=== PATIENT | female | born 1990 | race Caucasian/White ===

== ENCOUNTER → 2016-08-16 | Outpatient (CLI) | payer MEDICAID | LOC: RAD 14:37 | PROVIDERS: ATTEND Physician Assistant | DX: M54.5 Low back pain (principal) | CPT/HCPCS: 72110 ==

== ENCOUNTER 2016-08-28 10:33 | Day surgery (SDC) | payer MEDICAID ==
[~2016-08-28 10:33] MED LIST: PROPOFOL INJ 200 MG/20 ML VIAL IV ONE
[2016-08-28 13:03] VITALS: BP 117/69
--- NOTE | 2016-08-28 14:41 | Operative Report ---
Operative Report DATE OF SURGERY: 08/28/16 Operative Report: The risks benefits and alternatives of the procedure explained to the patient in detail and informed consent is obtained that GIF Olympus video scope was inserted into the patient's mouth and hypopharynx the esophagus is identified intubated and insufflated the scope was then advanced through the esophagus stomach and duodenum retroflexion maneuver is done the esophagus stomach and first and second portions of the duodenum examined PREOPERATIVE DIAGNOSIS: Nausea vomiting, gastric distention, question possible gastroparesis POSTOPERATIVE DIAGNOSIS: Hiatal hernia. Gastric polyp noted on the gastric side of the EG junction, status post biopsy. Gastritis status post biopsy. Esophageal ulcer OPERATION: EGD with biopsy SURGEON: FELIPE SLAUGHTER ANESTHESIA: LMAC TISSUE REMOVED OR ALTERED: Gastric nodule biopsy obtained. Biopsies obtained in the antrum to rule out for Helicobacter pylori COMPLICATIONS: None. ESTIMATED BLOOD LOSS: none. INTRAOPERATIVE FINDINGS: As described above. First and second portions of the duodenum are normal. PROCEDURE: Patient tolerated the procedure well. No immediate postprocedure complications are noted. Patient is discharged in good condition. Discharge date 08/28/2016. Discharge diet: Regular. Discharge activity: Regular. 2-3 week follow-up to discuss findings. We'll await on biopsies. Patient is instructed to call the office or proceed to the emergency room should there be any further problems or questions.
== END 2016-08-28 13:05 | disposition home or self-care (01) ==
LOC: END 10:33
PROVIDERS: ATTEND Internal Medicine Gastroenterology
PROC: 0DB68ZX Excision of Stomach, Via Natural or Artificial Opening Endoscopic, Diagnostic (ICD-10-PCS; principal; 2016-08-28 13:00)
DX: K29.50 Unspecified chronic gastritis without bleeding (principal); K31.7 Polyp of stomach and duodenum; K44.9 Diaphragmatic hernia without obstruction or gangrene; K22.10 Ulcer of esophagus without bleeding; E03.9 Hypothyroidism, unspecified; K31.84 Gastroparesis; K21.9 Gastro-esophageal reflux disease without esophagitis; E66.01 Morbid (severe) obesity due to excess calories; Z79.899 Other long term (current) drug therapy; Z68.41 Body mass index [BMI] 40.0-44.9, adult; Z88.5 Allergy status to narcotic agent; Z88.8 Allergy status to other drugs, medicaments and biological substances
CPT/HCPCS: 43239; 88342 ×2; 88305 ×2; J2704; 740

== ENCOUNTER → 2016-10-06 | Outpatient (CLI) | payer MEDICAID | LOC: RAD 10:30 | PROVIDERS: ATTEND Physician Assistant | DX: Z86.69 Personal history of other diseases of the nervous system and sense organs (principal) | CPT/HCPCS: 82565; 70553; A9577 ==

== ENCOUNTER 2016-10-07 19:46 | Emergency (ER) | payer MEDICAID ==
--- NOTE | 2016-10-07 19:58 | ER Document Report ---
ED Medical Screen (RME) - General Stated Complaint: PSYCH EVAL Time seen by provider: 19:52 Mode of Arrival: Ambulatory Information source: Patient Notes: 26-year-old female complaining of depression, hopeless, and anxiety without suicidal or homicidal ideation (prior hx of this though). sHe feels like she is hit rock bottom and his been in her room all day crying, seeking more help. Can't think clearly with rash and impulsive decisions for several years. PCP is Chelle Wood [facility] [place] primary care. She takes Lexapro 10mg at night. Hx. of Chiari malformation. Her Aunt dropped her off in the emergency department. I have greeted and performed a rapid initial assessment of this patient. A comprehensive ED assessment, evaluation of the patient, analysis of test results , and completion of the medical decision making process will be conducted by additional ED providers. TRAVEL OUTSIDE OF THE [place] IN LAST 30 DAYS: No - Related Data Allergies/Adverse Reactions: cefazolin [From Ancef] Allergy (Mild, Verified 10/07/16 19:53) Generalized rash cephalexin [From Keflex] Allergy (Mild, Verified 10/07/16 19:53) Generalized rash ciprofloxacin [From Cipro] Allergy (Mild, Verified 10/07/16 19:53) Generalized rash diphenhydramine [From Benadryl] Allergy (Mild, Verified 10/07/16 19:53) Generalized rash doxycycline Allergy (Mild, Verified 10/07/16 19:53) Generalized rash latex Allergy (Mild, Verified 10/07/16 19:53) Generalized rash morphine Allergy (Mild, Verified 10/07/16 19:53) Generalized rash oxycodone Allergy (Mild, Verified 10/07/16 19:53) Generalized rash adhesive tape Allergy (Verified 10/07/16 19:53) chloraprep Allergy (Uncoded 10/07/16 19:53) Redness, blisters Past Medical History - Past Medical History Cardiac Medical History: Denies: Hx Coronary Artery Disease, Hx Heart Attack, Hx Hypertension Pulmonary Medical History: Denies: Hx Asthma, Hx Bronchitis, Hx COPD, Hx Pneumonia Neurological Medical History: Denies: Hx Cerebrovascular Accident, Hx Seizures Musculoskeltal Medical History: Denies Hx Arthritis Past Surgical History: Reports: Hx Abdominal Surgery - FEEDING TUBE REMOVED, PYLORAPLASTY, Hx Section, Hx Cholecystectomy, Hx Tonsillectomy - Immunizations Hx Diphtheria, Pertussis, Tetanus Vaccination: No
[2016-10-07 20:38] LABS: ABSOLUTE BASOPHILS # (AUTO) 0.1 10^3/uL (0.0-0.2); ABSOLUTE EOSINOPHILS # (AUTO) 0.1 10^3/uL (0.0-0.6); ABSOLUTE LYMPHOCYTES (AUTO) 3.1 10^3/uL (0.5-4.7); ABSOLUTE MONOCYTES (AUTO) 0.8 10^3/uL (0.1-1.4); ABSOLUTE NEUT (AUTO) 8.5 10^3/uL (1.7-8.2); BASOPHILS % (AUTO) 0.5 % (0-2); EOSINOPHILS % (AUTO) 0.5 % (0-6); HEMATOCRIT 42.3 % (36.0-47.0); HEMOGLOBIN 13.9 g/dL (12.0-15.5); HGB HCT DIFFERENCE -0.6; LYMPHOCYTES % (AUTO) 24.6 % (13-45); MEAN CORPUSCULAR HEMOGLOBIN 28.5 pg (27.0-33.4); MEAN CORPUSCULAR HGB CONC 32.8 g/dL (32.0-36.0); MEAN CORPUSCULAR VOLUME 87 fl (80-97); MONOCYTES % (AUTO) 6.3 % (3-13); RED BLOOD COUNT 4.86 10^6/uL (3.72-5.28); RED CELL DISTRIBUTION WIDTH 14.9 % (11.5-14.0); SEGMENTED NEUTROPHILS % (AUTO) 68.1 % (42-78); WHITE BLOOD COUNT 12.5 10^3/uL (4.0-10.5)
[2016-10-07] MEDS ORDERED: LORAZEPAM 1 MG TABLET PO ONE (20:56)
--- NOTE | 2016-10-07 20:57 | ER Document Report ---
ED Psych Disorder / Suicide - General Chief Complaint: Psych Problem Stated Complaint: PSYCH EVAL Time seen by provider: 20:57 Mode of Arrival: Ambulatory Information source: Patient TRAVEL OUTSIDE OF THE [place] IN LAST 30 DAYS: No - HPI Patient complains to provider of: Other - Depression Onset was: Cannot confirm Quality of pain: No pain Suicide Risk Factors: Depressed, Lack of social support Normal mood: No Associated symptoms: Depressed, Flat affect Similar symptoms previously: Yes Recently seen / treated by doctor: No Notes: Patient is a 26-year-old female with a history of depression, currently taking Lexapro, who presents to the emergency room complaining of worsening depression , states she occasionally has suicidal thoughts but has no active thoughts at the present time, no history of any suicide attempts in the past, states she's been having difficulty sleeping for the past few weeks, she's been crying a lot , and she is making impulsive decisions, such as buying things impulsively, and having impulsive relationships, recently she had intercourse with her cousin's boyfriend which is created some issues and worsened her state of depression, patient states she is does not currently feel safe to go home - Related Data Allergies/Adverse Reactions: cefazolin [From Ancef] Allergy (Mild, Verified 10/07/16 19:53) Generalized rash cephalexin [From Keflex] Allergy (Mild, Verified 10/07/16 19:53) Generalized rash ciprofloxacin [From Cipro] Allergy (Mild, Verified 10/07/16 19:53) Generalized rash diphenhydramine [From Benadryl] Allergy (Mild, Verified 10/07/16 19:53) Generalized rash doxycycline Allergy (Mild, Verified 10/07/16 19:53) Generalized rash latex Allergy (Mild, Verified 10/07/16 19:53) Generalized rash morphine Allergy (Mild, Verified 10/07/16 19:53) Generalized rash oxycodone Allergy (Mild, Verified 10/07/16 19:53) Generalized rash adhesive tape Allergy (Verified 10/07/16 19:53) chloraprep Allergy (Uncoded 10/07/16 19:53) Redness, blisters Past Medical History - General Information source: Patient - Social History Smoking Status: Current Every Day Smoker Family History: Reviewed & Not Pertinent Patient has suicidal ideation: No Patient has homicidal ideation: No - Past Medical History Cardiac Medical History: Denies: Hx Coronary Artery Disease, Hx Heart Attack, Hx Hypertension Pulmonary Medical History: Denies: Hx Asthma, Hx Bronchitis, Hx COPD, Hx Pneumonia Neurological Medical History: Denies: Hx Cerebrovascular Accident, Hx Seizures Renal/ Medical History: Denies: Hx Peritoneal Dialysis Musculoskeltal Medical History: Denies Hx Arthritis Past Surgical History: Reports: Hx Abdominal Surgery - FEEDING TUBE REMOVED, PYLORAPLASTY, Hx Section, Hx Cholecystectomy, Hx Tonsillectomy - Immunizations Hx Diphtheria, Pertussis, Tetanus Vaccination: No Review of Systems - Review of Systems Constitutional: No symptoms reported EENT: No symptoms reported Cardiovascular: No symptoms reported Respiratory: No symptoms reported Gastrointestinal: No symptoms reported Genitourinary: No symptoms reported Female Genitourinary: No symptoms reported Musculoskeletal: No symptoms reported Skin: No symptoms reported Hematologic/Lymphatic: No symptoms reported Neurological/Psychological: See HPI -: Yes All other systems reviewed and negative Physical Exam - Vital signs Vitals: Temp Pulse Resp BP Pulse Ox 98.6 F 98 18 133/87 H 99 10/07/16 19:50 10/07/16 19:50 10/07/16 19:50 10/07/16 19:50 10/07/16 19:50 Interpretation: Normal - General General appearance: Appears well, Alert - HEENT Head: Normocephalic, Atraumatic Eyes: Normal Pupils: PERRL - Respiratory Respiratory status: No respiratory distress Chest status: Nontender Breath sounds: Normal Chest palpation: Normal - Cardiovascular Rhythm: Regular Heart sounds: Normal auscultation Murmur: No - Abdominal Inspection: Normal Distension: No distension Bowel sounds: Normal Tenderness: Nontender Organomegaly: No organomegaly - Back Back: Normal, Nontender - Extremities General upper extremity: Normal inspection, Nontender, Normal color, Normal ROM , Normal temperature General lower extremity: Normal inspection, Nontender, Normal color, Normal ROM , Normal temperature, Normal weight bearing. No: Jorge Luis's sign - Neurological Neuro grossly intact: Yes Cognition: Normal Orientation: AAOx4 Dian Coma Scale Eye Opening: Spontaneous [place] Coma Scale Verbal: Oriented Dian Coma Scale Motor: Obeys Commands [place] Coma Scale Total: 15 Speech: Normal Motor strength normal: LUE, RUE, LLE, RLE Sensory: Normal - Psychological Associated symptoms: Depressed, Flat affect - Skin Skin Temperature: Warm Skin Moisture: Dry Skin Color: Normal Location of irregularity: Other - Patient does have large ecchymotic lesions to the left neck and right breast resembling hickies Course - Re-evaluation Re-evalutation: 10/08/16 03:42 Patient reports worsening depression, feeling unsafe at home, making impulsive decisions, she has no active suicidal or homicidal ideation, she is not currently in any type of mental health treatment program, she is agreeable to staying in the emergency room as a voluntary patient for further evaluation and treatment by the mental health team in the morning, she is medically stable for transfer or discharge - Vital Signs Vital signs: Temp Pulse Resp BP Pulse Ox 98.6 F 98 18 133/87 H 99 10/07/16 19:50 10/07/16 19:50 10/07/16 20:45 10/07/16 19:50 10/07/16 19:50 - Laboratory Result Diagrams: 10/07/16 20:14 10/07/16 20:14 Laboratory results interpreted by me: 10/07/16 10/07/16 10/07/16 20:14 20:14 20:43 WBC 12.5 H RDW 14.9 H Absolute Neutrophils 8.5 H Sodium 145.1 H Chloride 112 H Carbon Dioxide 21 L Urine Protein 30 H Urine Ketones 80 H Urine Blood LARGE H Ur Leukocyte Esterase SMALL H Salicylates < 1.0 L Acetaminophen < 10 L - EKG Interpretation by Pa EKG shows normal: Sinus rhythm Rate: Normal Rhythm: NSR Discharge - Discharge Clinical Impression: Depression Qualifiers: Depression Type: unspecified Qualified Code(s): F32.9 - Major depressive disorder, single episode, unspecified Condition: Stable Disposition: PSYCH HOSP/UNIT
[2016-10-07 21:06] LABS: ALANINE AMINOTRANSFERASE 36 U/L (9-52); ALBUMIN 4.4 g/dL (3.5-5.0); ALKALINE PHOSPHATASE 120 U/L (38-126); ANION GAP 12 (5-19); ASPARTATE AMINO TRANSFERASE 22 U/L (14-36); BILIRUBIN,TOTAL 0.7 mg/dL (0.2-1.3); BLOOD UREA NITROGEN 10 mg/dL (7-20); CARBON DIOXIDE 21 mmol/L (22-30); CHLORIDE 112 mmol/L (98-107); CREATININE RESULT 0.58 mg/dL (0.52-1.25); GLUCOSE 92 mg/dL (75-110); POTASSIUM 4.2 mmol/L (3.6-5.0); SODIUM 145.1 mmol/L (137-145); TOTAL PROTEIN 7.3 g/dL (6.3-8.2)
[2016-10-07 21:07] LABS: ALCOHOL < 10 mg/dL (NONE DETECTED)
[2016-10-07 21:28] LABS: APPEARANCE,URINE SLIGHTLY-CLOUDY; BILIRUBIN,URINE NEGATIVE (NEGATIVE); GLUCOSE, URINE NEGATIVE (NEGATIVE); KETONES,URINE 80 mg/dL (NEGATIVE); LEUKOCYTE ESTERASE,URINE SMALL (NEGATIVE); NITRITE,URINE NEGATIVE (NEGATIVE); PROTEIN,URINE 30 mg/dL (NEGATIVE); URINE SPECIFIC GRAVITY 1.031; UROBILINOGEN,URINE NEGATIVE mg/dL (<2.0)
[2016-10-07 21:38] LABS: URINE BARBITURATES SCREEN UNCONFIRMED POSITIVE; URINE METHADONE SCREEN NEGATIVE; URINE OPIATES LOW NEGATIVE; URINE PHENCYCLIDINE SCREEN NEGATIVE
--- NOTE | 2016-10-08 09:45 | EKG REPORT ---
SEVERITY:- NORMAL ECG - SINUS RHYTHM : Confirmed by: Andrzej Gonsalves MD 08-Oct-2016 09:44:38
--- NOTE | 2016-10-08 09:54 | ER Document Report ---
Doctor's Note Notes: 10/08/16 09:52 Rounds: Chart reviewed and patient interviewed. Patient is being evaluated for worsening depression. Denies feeling suicidal, however. Vital signs all been normal with the exception of one aberrant and obviously mistaken blood pressure 196/58. Other blood pressures have all been normal. Labs had a white count of 12,500 but no explanation. Patient has no symptoms of any infections. Her urinalysis did have large ketones and small leukocyte esterase with 15 white cells and 182 red cells. Patient just started her menstrual cycle yesterday. I think this urine specimen that is contamination in the collection process. Patient appears to be medically stable for transfer or discharge. Mental health has assessed the patient feels she can be discharged to [facility]
[2016-10-08 10:28] VITALS: BP 133/74
--- NOTE | 2016-10-08 12:21 | PSYCHOLOGICAL NOTE ---
Psych Note - Psych Note Psych Note: Please see paper chart for consultation report and disposition.
== END 2016-10-08 10:32 | disposition home or self-care (01) ==
LOC: ER 19:46
DX: F32.9 Major depressive disorder, single episode, unspecified (principal); F41.9 Anxiety disorder, unspecified; Z88.3 Allergy status to other anti-infective agents; Z88.6 Allergy status to analgesic agent; Z91.040 Latex allergy status; Z90.49 Acquired absence of other specified parts of digestive tract
CPT/HCPCS: 36415; 80053; 80307; 81001; 84703; 85025; 93005; 93010; 99285

== ENCOUNTER 2016-10-21 18:45 | Emergency (ER) | payer MEDICAID, OTHER ==
[2016-10-21] MEDS ORDERED: ONDANSETRON 4 MG TAB.RAPDIS PO ONE (19:05)
--- NOTE | 2016-10-21 19:05 | ER Document Report ---
ED Medical Screen (RME) - General Stated Complaint: NAUSEA Notes: Patient is a 26-year-old female who presents emergency Department complaining of nausea and vomiting, headache, syncope. Patient states that she was in the bathroom when she got up to go back to bed and she passed out. she's been throwing up for 1 week. Has a history of gastroparesis. Denies any hematemesis or hematochezia. Admits to neck pain which she had prior to syncope I have greeted and performed a rapid initial assessment of this patient. A comprehensive ED assessment and evaluation of the patient, analysis of test results and completion of the medical decision making process will be conducted by additional ED providers. TRAVEL OUTSIDE OF THE [place] IN LAST 30 DAYS: No - Related Data Allergies/Adverse Reactions: cefazolin [From Ancef] Allergy (Mild, Verified 10/07/16 19:53) Generalized rash cephalexin [From Keflex] Allergy (Mild, Verified 10/07/16 19:53) Generalized rash ciprofloxacin [From Cipro] Allergy (Mild, Verified 10/07/16 19:53) Generalized rash diphenhydramine [From Benadryl] Allergy (Mild, Verified 10/07/16 19:53) Generalized rash doxycycline Allergy (Mild, Verified 10/07/16 19:53) Generalized rash latex Allergy (Mild, Verified 10/07/16 19:53) Generalized rash morphine Allergy (Mild, Verified 10/07/16 19:53) Generalized rash oxycodone Allergy (Mild, Verified 10/07/16 19:53) Generalized rash adhesive tape Allergy (Verified 10/07/16 19:53) chloraprep Allergy (Uncoded 10/07/16 19:53) Redness, blisters Past Medical History - Past Medical History Cardiac Medical History: Denies: Hx Coronary Artery Disease, Hx Heart Attack, Hx Hypertension Pulmonary Medical History: Denies: Hx Asthma, Hx Bronchitis, Hx COPD, Hx Pneumonia Neurological Medical History: Denies: Hx Cerebrovascular Accident, Hx Seizures Renal/ Medical History: Denies: Hx Peritoneal Dialysis Musculoskeltal Medical History: Denies Hx Arthritis Past Surgical History: Reports: Hx Abdominal Surgery - FEEDING TUBE REMOVED, PYLORAPLASTY, Hx Section, Hx Cholecystectomy, Hx Tonsillectomy - Immunizations Hx Diphtheria, Pertussis, Tetanus Vaccination: No Physical Exam - Vital signs Vitals: Temp Pulse Resp BP Pulse Ox 97.7 F 74 16 125/61 97 10/21/16 18:56 10/21/16 18:56 10/21/16 18:56 10/21/16 18:56 10/21/16 18:56 Course - Vital Signs Vital signs: Temp Pulse Resp BP Pulse Ox 97.7 F 74 16 125/61 97 10/21/16 18:56 10/21/16 18:56 10/21/16 18:56 10/21/16 18:56 10/21/16 18:56
[2016-10-21] MEDS ORDERED: ONDANSETRON 4 MG TAB.RAPDIS ONE (19:18)
[2016-10-21] MEDS ORDERED: NORMAL SALINE 1000 ML 1,000 ML IV ONE (19:37)
--- NOTE | 2016-10-21 19:39 | ER Document Report ---
ED General - General Chief Complaint: Passed Out Prior to Arrival Stated Complaint: NAUSEA Notes: Patient is a 26-year-old female with past medical history of diabetes and gastroparesis who presents with 1 week of intermittent nausea and approximately 12 hours of nonbilious persistent vomiting. States she's had similar symptoms in the past with her gastroparesis. She's been trying Phenergan at home with minimal to no improvement. She has not seen her primary care doctor regarding today's concerns. She also notes that today she had a syncopal episode after going from a sitting to standing position. States when she went from a sitting to standing position she became lightheaded and felt herself passing out. She did not sustain any trauma during this event. She has had similar episodes in the past when she's become dehydrated. She has been able to tolerate oral intake since the episode of syncope denies any chest pain, shortness of breath, weakness, numbness or altered mental status.She did initially have a mild headache after the syncopal episode but that this has resolved. TRAVEL OUTSIDE OF THE [place] IN LAST 30 DAYS: No - Related Data Allergies/Adverse Reactions: cefazolin [From Ancef] Allergy (Mild, Verified 10/07/16 19:53) Generalized rash cephalexin [From Keflex] Allergy (Mild, Verified 10/07/16 19:53) Generalized rash ciprofloxacin [From Cipro] Allergy (Mild, Verified 10/07/16 19:53) Generalized rash diphenhydramine [From Benadryl] Allergy (Mild, Verified 10/07/16 19:53) Generalized rash doxycycline Allergy (Mild, Verified 10/07/16 19:53) Generalized rash latex Allergy (Mild, Verified 10/07/16 19:53) Generalized rash morphine Allergy (Mild, Verified 10/07/16 19:53) Generalized rash oxycodone Allergy (Mild, Verified 10/07/16 19:53) Generalized rash adhesive tape Allergy (Verified 10/07/16 19:53) chloraprep Allergy (Uncoded 10/07/16 19:53) Redness, blisters Past Medical History - General Information source: Patient - Social History Smoking Status: Former Smoker Chew tobacco use (# tins/day): No Frequency of alcohol use: Occasional Drug Abuse: None Family History: Reviewed & Not Pertinent Patient has suicidal ideation: No Patient has homicidal ideation: No - Past Medical History Cardiac Medical History: Denies: Hx Coronary Artery Disease, Hx Heart Attack, Hx Hypertension Pulmonary Medical History: Denies: Hx Asthma, Hx Bronchitis, Hx COPD, Hx Pneumonia Neurological Medical History: Denies: Hx Cerebrovascular Accident, Hx Seizures Renal/ Medical History: Denies: Hx Peritoneal Dialysis Musculoskeltal Medical History: Denies Hx Arthritis Past Surgical History: Reports: Hx Abdominal Surgery - FEEDING TUBE REMOVED, PYLORAPLASTY, Hx Section, Hx Cholecystectomy, Hx Tonsillectomy - Immunizations Hx Diphtheria, Pertussis, Tetanus Vaccination: No Review of Systems - Review of Systems Notes: Constitutional: Negative for fever. HENT: Negative for sore throat. Eyes: Negative for visual changes. Cardiovascular: Negative for chest pain. Respiratory: Negative for shortness of breath. Gastrointestinal: Negative for abdominal pain, positive for vomiting Genitourinary: Negative for dysuria. Musculoskeletal: Negative for back pain. Skin: Negative for rash. Neurological: Negative for headaches, weakness or numbness. 10 point ROS negative except as marked above and in HPI. Physical Exam - Vital signs Vitals: Temp Pulse Resp BP Pulse Ox 97.7 F 74 16 125/61 97 10/21/16 18:56 10/21/16 18:56 10/21/16 18:56 10/21/16 18:56 10/21/16 18:56 Interpretation: Normal Notes: PHYSICAL EXAMINATION: GENERAL: Well-appearing, well-nourished and in no acute distress. HEAD: Atraumatic, normocephalic. EYES: Pupils equal round and reactive to light, extraocular movements intact, sclera anicteric, conjunctiva are normal. ENT: nares patent, oropharynx clear without exudates. Moist mucous membranes. NECK: Normal range of motion, supple without lymphadenopathy LUNGS: Breath sounds clear to auscultation bilaterally and equal. No wheezes rales or rhonchi. HEART: Regular rate and rhythm without murmurs ABDOMEN: Soft, nontender, normoactive bowel sounds. No guarding, no rebound. No masses appreciated. EXTREMITIES: Normal range of motion, no pitting or edema. No cyanosis. NEUROLOGICAL: No focal neurological deficits. Moves all extremities spontaneously and on command. PSYCH: Normal mood, normal affect. SKIN: Warm, Dry, normal turgor, no rashes or lesions noted. Course - Re-evaluation Re-evalutation: 10/21/16 19:38 Presentation of syncope of unclear etiology although I suspect this is secondary to dehydration setting of intermittent episodes of vomiting over the last several days. Regarding patient's vomiting: She has no focal abdominal tenderness on examination. States she's had similar symptoms repeatedly in the past with gastroparesis episodes. She does not have a gallbladder. She denies any abdominal pain and her clinical history and does not appear to be consistent with an acute hepatitis, pancreatitis, bowel obstruction, or ileus. She continues to pass flatus and have bowel movements without difficulty. Patient normotensive, alert, without focal neurologic deficits at time of arrival. Denies syncope was during exertion. No preceding symptoms of palpitations, chest pain, or shortness of breath. Patient asymptomatic at time of arrival. EKG is without evidence of HCOM, right heart strain, ST changes to suggest ischemia, prolong QTc, delta wave, epsilon wave, or Brugada syndrome. Patient denies any family history of sudden cardiac , personal history of of structural heart disease. Patient denies any symptoms to suggest an acute PE , MN, TAD, SAH, seizure, or acute GI bleed as the etiology of their syncope today. On exam, no murmurs to suggest critical aortic stenosis as possible etiology. Based on overall clinical history, exam findings, vitals, and patient s appearance, I feel it is safe for patient to be discharged home at this time with close outpatient follow-up and strict return precautions. Patient is in agreement with this plan, has verbalized indications for return to ED, and questions have been answered. - Vital Signs Vital signs: Temp Pulse Resp BP Pulse Ox 98.2 F 79 18 118/63 98 10/21/16 22:28 10/21/16 22:28 10/21/16 22:28 10/21/16 22:28 10/21/16 22:28 - Laboratory Result Diagrams: 10/21/16 21:09 - EKG Interpretation by Me Additional EKG results interpreted by me: 10/22/16 01:19 Normal sinus rhythm. Rate 77. No ST elevation. QTC is 431 Discharge - Discharge Clinical Impression: Syncope Qualifiers: Syncope type: vasovagal syncope Qualified Code(s): R55 - Syncope and collapse Nausea and vomiting Qualifiers: Vomiting type: unspecified Vomiting Intractability: non-intractable Qualified Code(s): R11.2 - Nausea with vomiting, unspecified Condition: Good Disposition: HOME, SELF-CARE Additional Instructions: You have been seen in the Emergency Department (ED) today for nausea and vomiting. Your work up today has not shown a clear cause for your symptoms. Follow up with your doctor as soon as possible regarding today's emergent visit and your symptoms of nausea. Return to the Emergency Department (ED) if you develop abdominal pain, bloody vomiting, bloody diarrhea, if you are unable to tolerate fluids due to vomiting , or if you develop other symptoms that concern you. You were seen today after an episode of passing out. Your EKG here is normal. At this time, we do not feel that your episode of passing out was from any life- threatening cause. Please drink plenty of fluids over the next several days. Return to emergency department if you have any further episodes of syncope, headache, weakness, numbness, chest pain, or shortness of breath. Please follow up closely with your primary care physician. Prescriptions: Promethazine HCl [Phenergan 25 mg Supp.rect] 25 mg FL Q4HP PRN #[id number] supp.rect PRN Reason: Referrals: ARANZA LI MD [Primary Care Provider] - Follow up in 3-5 days
--- NOTE | 2016-10-21 20:34 | EKG REPORT ---
SEVERITY:- NORMAL ECG - SINUS RHYTHM : Confirmed by: Keturah Mathew MD 21-Oct-2016 20:33:37
[2016-10-21 21:48] LABS: ALANINE AMINOTRANSFERASE 52 U/L (9-52); ALBUMIN 3.8 g/dL (3.5-5.0); ALKALINE PHOSPHATASE 117 U/L (38-126); ANION GAP 13 (5-19); ASPARTATE AMINO TRANSFERASE 26 U/L (14-36); BILIRUBIN,TOTAL 0.6 mg/dL (0.2-1.3); BLOOD UREA NITROGEN 10 mg/dL (7-20); CALCIUM 9.3 mg/dL (8.4-10.2); CARBON DIOXIDE 25 mmol/L (22-30); CHLORIDE 106 mmol/L (98-107); CREATININE RESULT 0.58 mg/dL (0.52-1.25); GLUCOSE 80 mg/dL (75-110); LIPASE 32.3 U/L (23-300); POTASSIUM 3.9 mmol/L (3.6-5.0); SODIUM 143.7 mmol/L (137-145); TOTAL PROTEIN 6.7 g/dL (6.3-8.2)
[2016-10-21] MEDS ORDERED: ONDANSETRON ODT 4 MG TAB (6 TAB/DSPK) PO PRN (22:19)
[2016-10-21 22:31] VITALS: BP 118/63
== END 2016-10-21 22:28 | disposition home or self-care (01) ==
LOC: ER 18:45
DX: R55 Syncope and collapse (principal); R11.2 Nausea with vomiting, unspecified; Z88.3 Allergy status to other anti-infective agents; Z90.49 Acquired absence of other specified parts of digestive tract
CPT/HCPCS: 93005; 99284; 96360; 36415; 83690; 84703; 80053; 93010; S0119; J7030

== ENCOUNTER 2016-12-03 14:11 | Emergency (ER) | payer MEDICAID ==
--- NOTE | 2016-12-03 15:41 | ER Document Report ---
ED Medical Screen (RME) - General Chief Complaint: Neck Problem Stated Complaint: NECK PAIN Mode of Arrival: Ambulatory Information source: Patient TRAVEL OUTSIDE OF THE [place] IN LAST 30 DAYS: No - HPI Onset: This morning Onset/Duration: Sudden Quality of pain: Dull Severity: Moderate Associated Symptoms: Nausea, Vomiting. denies: Fever, Headache Exacerbated by: Denies Relieved by: Denies Similar symptoms previously: Yes Recently seen / treated by doctor: No - HAS APPT. TOMORROW - Related Data Allergies/Adverse Reactions: cefazolin [From Ancef] Allergy (Mild, Verified 12/03/16 15:33) Generalized rash cephalexin [From Keflex] Allergy (Mild, Verified 12/03/16 15:33) Generalized rash ciprofloxacin [From Cipro] Allergy (Mild, Verified 12/03/16 15:33) Generalized rash diphenhydramine [From Benadryl] Allergy (Mild, Verified 12/03/16 15:33) Generalized rash doxycycline Allergy (Mild, Verified 12/03/16 15:33) Generalized rash latex Allergy (Mild, Verified 12/03/16 15:33) Generalized rash morphine Allergy (Mild, Verified 12/03/16 15:33) Generalized rash oxycodone Allergy (Mild, Verified 12/03/16 15:33) Generalized rash adhesive tape Allergy (Verified 12/03/16 15:33) chloraprep Allergy (Uncoded 12/03/16 15:33) Redness, blisters Past Medical History - General Information source: Patient - Social History Lives with: Friend - Past Medical History Cardiac Medical History: Denies: Hx Coronary Artery Disease, Hx Heart Attack, Hx Hypertension Pulmonary Medical History: Denies: Hx Asthma, Hx Bronchitis, Hx COPD, Hx Pneumonia Neurological Medical History: Reports: Other - CHIARI MALFORMATION. Denies: Hx Cerebrovascular Accident, Hx Seizures Renal/ Medical History: Denies: Hx Peritoneal Dialysis Musculoskeltal Medical History: Denies Hx Arthritis Past Surgical History: Reports: Hx Abdominal Surgery - FEEDING TUBE REMOVED, PYLORAPLASTY, Hx Section, Hx Cholecystectomy, Hx Neurologic Surgery - DECOMPRESSION, Hx Tonsillectomy - Immunizations Hx Diphtheria, Pertussis, Tetanus Vaccination: No Review of Systems - Review of Systems Constitutional: No symptoms reported. denies: Chills, Fever EENT: No symptoms reported Cardiovascular: Lightheaded Respiratory: No symptoms reported Physical Exam - Vital signs Vitals: Temp Pulse Resp BP Pulse Ox 100.0 F 82 18 126/98 H 98 12/03/16 14:25 12/03/16 14:25 12/03/16 14:25 12/03/16 14:25 12/03/16 14:25 Interpretation: Hypertensive. No: Tachycardic, Tachypneic, Febrile - General General appearance: Appears well, Alert In distress: None - HEENT Head: Normocephalic Eyes: Normal Conjunctiva: Normal Mouth/Lips: Normal Mucous membranes: Dry - MILDLY Course - Vital Signs Vital signs: Temp Pulse Resp BP Pulse Ox 100.0 F 82 18 126/98 H 98 12/03/16 14:25 12/03/16 14:25 12/03/16 14:25 12/03/16 14:25 12/03/16 14:25
[2016-12-03] MEDS ORDERED: NORMAL SALINE 1000 ML 1,000 ML IV ONE (15:48)
[2016-12-03 16:19] LABS: APPEARANCE,URINE SLIGHTLY-CLOUDY; BILIRUBIN,URINE NEGATIVE (NEGATIVE); GLUCOSE, URINE NEGATIVE (NEGATIVE); KETONES,URINE NEGATIVE (NEGATIVE); LEUKOCYTE ESTERASE,URINE NEGATIVE (NEGATIVE); NITRITE,URINE NEGATIVE (NEGATIVE); PROTEIN,URINE NEGATIVE (NEGATIVE); URINE SPECIFIC GRAVITY 1.031; UROBILINOGEN,URINE NEGATIVE mg/dL (<2.0)
[2016-12-03] MEDS ORDERED: CYCLOBENZAPRINE HCL 10 MG TABLET PO ONE (16:26)
[2016-12-03] MEDS ORDERED: ONDANSETRON 4 MG TAB.RAPDIS PO ONE (16:31)
[2016-12-03] MEDS ORDERED: ACETAMINOPHEN 325 MG TABLET PO ONE (16:31)
[2016-12-03 17:25] LABS: ABSOLUTE EOSINOPHILS # (AUTO) 0.1 10^3/uL (0.0-0.6); ABSOLUTE LYMPHOCYTES (AUTO) 0.6 10^3/uL (0.5-4.7); ABSOLUTE MONOCYTES (AUTO) 0.5 10^3/uL (0.1-1.4); ABSOLUTE NEUT (AUTO) 9.7 10^3/uL (1.7-8.2); BASOPHILS % (AUTO) 0.3 % (0-2); EOSINOPHILS % (AUTO) 0.5 % (0-6); HEMATOCRIT 45.2 % (36.0-47.0); HEMOGLOBIN 14.6 g/dL (12.0-15.5); HGB HCT DIFFERENCE -1.4; LYMPHOCYTES % (AUTO) 5.8 % (13-45); MEAN CORPUSCULAR HEMOGLOBIN 28.2 pg (27.0-33.4); MEAN CORPUSCULAR HGB CONC 32.2 g/dL (32.0-36.0); MEAN CORPUSCULAR VOLUME 88 fl (80-97); MONOCYTES % (AUTO) 4.6 % (3-13); RED BLOOD COUNT 5.17 10^6/uL (3.72-5.28); RED CELL DISTRIBUTION WIDTH 14.9 % (11.5-14.0); SEGMENTED NEUTROPHILS % (AUTO) 88.8 % (42-78); WHITE BLOOD COUNT 10.9 10^3/uL (4.0-10.5)
[2016-12-03 17:40] LABS: ALANINE AMINOTRANSFERASE 28 U/L (9-52); ALBUMIN 4.2 g/dL (3.5-5.0); ALKALINE PHOSPHATASE 135 U/L (38-126); ANION GAP 15 (5-19); ASPARTATE AMINO TRANSFERASE 18 U/L (14-36); BILIRUBIN,DIRECT 0.4 mg/dL (0.0-0.4); BILIRUBIN,TOTAL 0.9 mg/dL (0.2-1.3); BLOOD UREA NITROGEN 17 mg/dL (7-20); CALCIUM 9.3 mg/dL (8.4-10.2); CARBON DIOXIDE 24 mmol/L (22-30); CHLORIDE 109 mmol/L (98-107); CREATININE RESULT 0.69 mg/dL (0.52-1.25); GLUCOSE 88 mg/dL (75-110); POTASSIUM 4.1 mmol/L (3.6-5.0); SODIUM 148.1 mmol/L (137-145); TOTAL PROTEIN 7.8 g/dL (6.3-8.2)
[2016-12-03] MEDS ORDERED: ONDANSETRON ODT 4 MG TAB (6 TAB/DSPK) PO PRN (18:08)
--- NOTE | 2016-12-03 18:08 | ER Document Report ---
ED Neck/Back Problem - General Chief Complaint: Neck Problem Stated Complaint: NECK PAIN Mode of Arrival: Ambulatory Notes: Patient is a 26 year old female who presents to the ED complaining of worsening neck pain and headache. She states that she has daily headaches but now today her neck pain is worse. She states she has a history of a chiari malformatio that was diagnosed in 2011 and she underwent a procedure for it that same year. She states that she has not had issues with it since, does not follow with a neurologist and has had her headaches managed by her PCP. has been taking 10 mg vicodin She is due to f/u tomorrow with PCP Chelle Durbin PMH: gastroparesis, h/o chiari malformation, GERD, depression PSH: pyloroplasty SH: social tobacco and etoh use, denies drug use TRAVEL OUTSIDE OF THE [place] IN LAST 30 DAYS: No - Related Data Allergies/Adverse Reactions: cefazolin [From Ancef] Allergy (Mild, Verified 12/03/16 15:33) Generalized rash cephalexin [From Keflex] Allergy (Mild, Verified 12/03/16 15:33) Generalized rash ciprofloxacin [From Cipro] Allergy (Mild, Verified 12/03/16 15:33) Generalized rash diphenhydramine [From Benadryl] Allergy (Mild, Verified 12/03/16 15:33) Generalized rash doxycycline Allergy (Mild, Verified 12/03/16 15:33) Generalized rash latex Allergy (Mild, Verified 12/03/16 15:33) Generalized rash morphine Allergy (Mild, Verified 12/03/16 15:33) Generalized rash oxycodone Allergy (Mild, Verified 12/03/16 15:33) Generalized rash adhesive tape Allergy (Verified 12/03/16 15:33) chloraprep Allergy (Uncoded 12/03/16 15:33) Redness, blisters Home Medications: Current Home Medications Hydrocodone Bit/Acetaminophen [Hydrocodon-Acetaminophn 10-325] 1 tab PO PRN PRN 12/03/16 [History] Past Medical History - General Information source: Patient - Social History Smoking Status: Never Smoker Chew tobacco use (# tins/day): No Drug Abuse: None Lives with: Friend Family History: Reviewed & Not Pertinent Patient has suicidal ideation: No Patient has homicidal ideation: No - Past Medical History Cardiac Medical History: Denies: Hx Coronary Artery Disease, Hx Heart Attack, Hx Hypertension Pulmonary Medical History: Denies: Hx Asthma, Hx Bronchitis, Hx COPD, Hx Pneumonia Neurological Medical History: Reports: Other - CHIARI MALFORMATION. Denies: Hx Cerebrovascular Accident, Hx Seizures Renal/ Medical History: Denies: Hx Peritoneal Dialysis Musculoskeltal Medical History: Denies Hx Arthritis Past Surgical History: Reports: Hx Abdominal Surgery - FEEDING TUBE REMOVED, PYLORAPLASTY, Hx Section, Hx Cholecystectomy, Hx Neurologic Surgery - DECOMPRESSION, Hx Tonsillectomy - Immunizations Hx Diphtheria, Pertussis, Tetanus Vaccination: No Review of Systems - Review of Systems Constitutional: No symptoms reported EENT: No symptoms reported Cardiovascular: No symptoms reported Respiratory: No symptoms reported Gastrointestinal: No symptoms reported Musculoskeletal: Muscle pain Skin: No symptoms reported Hematologic/Lymphatic: No symptoms reported Neurological/Psychological: No symptoms reported Physical Exam - Vital signs Vitals: Temp Pulse Resp BP Pulse Ox 100.0 F 82 18 126/98 H 98 12/03/16 14:25 12/03/16 14:25 12/03/16 14:25 12/03/16 14:25 12/03/16 14:25 - Notes Notes: PHYSICAL EXAM GENERAL: Alert, interacts well. HEAD: Normocephalic, atraumatic. EYES: Pupils equal, round, and reactive to light. Extraocular movements intact. ENT: Oral mucosa moist, tongue midline. NECK: Full range of motion. Supple. Trachea midline. LUNGS: Clear to auscultation bilaterally, no wheezes, rales, or rhonchi. No respiratory distress. HEART: Regular rate and rhythm. No murmurs, gallops, or rubs. ABDOMEN: Soft, nondistended, nontender. No guarding, rebound, or rigidity.. Bowel sounds present in all 4 quadrants. EXTREMITIES: Moves all 4 extremities spontaneously. No edema, radial and dorsalis pedis pulses 2/4 bilaterally. No cyanosis. Has pain to palpation of paraspinous muscles and shoulders, her pain is reproducible NEUROLOGICAL: Alert and oriented x4. Normal speech. PSYCH: Normal affect, normal mood. SKIN: Warm, dry, normal turgor. No rashes or lesions noted. Course - Re-evaluation Re-evalutation: 12/03/16 20:09 Patient is a 26-year-old female is hemodynamically stable, no acute distress, elevated temp but afebrile. Patient has full range of motion, benign neuro exam. Patient medicated for her muscle pain with muscle relaxer and Tylenol, labs do not reveal any concern for infection. We'll discharge patient home with instruction to follow up with her primary care tomorrow Per [facility] protocol and guidelines, this case was discussed with supervising physician Dr. Lupis Ryan prior to discharge - Vital Signs Vital signs: Temp Pulse Resp BP Pulse Ox 98.5 F 111 H 16 131/70 H 98 12/03/16 18:36 12/03/16 18:36 12/03/16 18:36 12/03/16 18:36 12/03/16 18:36 - Laboratory Result Diagrams: 12/03/16 17:15 12/03/16 17:15 Laboratory results interpreted by me: 12/03/16 12/03/16 12/03/16 15:55 17:15 17:15 WBC 10.9 H RDW 14.9 H Seg Neutrophils % 88.8 H Lymphocytes % 5.8 L Absolute Neutrophils 9.7 H Sodium 148.1 H Chloride 109 H Alkaline Phosphatase 135 H Urine Blood SMALL H Discharge - Discharge Clinical Impression: Neck pain Condition: Good Disposition: HOME, SELF-CARE Instructions: Muscle Strain ([facility]), Muscle Relaxers ([facility]) Additional Instructions: Physical medications as prescribed Please follow-up with your primary care physician as scheduled tomorrow Prescriptions: Cyclobenzaprine HCl [Flexeril 10 mg Tablet] 10 mg PO TIDP PRN #15 tab PRN Reason: Referrals: CHELLE DURBIN PA-C [Primary Care Provider] - Follow up tomorrow
[2016-12-03 18:39] VITALS: BP 131/70
== END 2016-12-03 18:39 | disposition home or self-care (01) ==
LOC: ER 14:11
DX: M54.2 Cervicalgia (principal); R51 Headache; Z88.3 Allergy status to other anti-infective agents; Z91.040 Latex allergy status; Z88.6 Allergy status to analgesic agent; Z90.49 Acquired absence of other specified parts of digestive tract
CPT/HCPCS: 99283; 96360; 36415; 85025; 81025; 80053; 81001; J3490 ×2; S0119; J7030

== ENCOUNTER 2017-04-10 21:10 | Emergency (ER) | payer MEDICAID ==
[2017-04-11] MEDS ORDERED: KETOROLAC TROMETHAMINE INJ/PF 30 MG/1 ML SDV IV ONE (00:17)
--- NOTE | 2017-04-11 01:26 | ER Document Report ---
ED General - General Chief Complaint: Neck Pain >24hrs old Stated Complaint: HEAD PAIN Time Seen by Provider: 04/10/17 23:53 Notes: Patient is a 26-year-old female presents with complaint of Chiari malformation. She says that she had surgery for in 2011. This was done in [facility]. She says since then she does have intermittent headaches. She says today that she is having worsening headache and some dizziness. No vomiting. No weakness or numbness into extremities. She says that she did see a neurosurgeon in [place] and she was told that there can be nothing further done being that she is only had the surgery. She denies any fevers. She is on Nucynta for pain control. She has no other complaints at this time. TRAVEL OUTSIDE OF THE [place] IN LAST 30 DAYS: No - Related Data Allergies/Adverse Reactions: cefazolin [From Ancef] Allergy (Mild, Verified 12/03/16 15:33) Generalized rash cephalexin [From Keflex] Allergy (Mild, Verified 12/03/16 15:33) Generalized rash ciprofloxacin [From Cipro] Allergy (Mild, Verified 12/03/16 15:33) Generalized rash diphenhydramine [From Benadryl] Allergy (Mild, Verified 12/03/16 15:33) Generalized rash doxycycline Allergy (Mild, Verified 12/03/16 15:33) Generalized rash latex Allergy (Mild, Verified 12/03/16 15:33) Generalized rash morphine Allergy (Mild, Verified 12/03/16 15:33) Generalized rash oxycodone Allergy (Mild, Verified 12/03/16 15:33) Generalized rash adhesive tape Allergy (Verified 12/03/16 15:33) chloraprep Allergy (Uncoded 12/03/16 15:33) Redness, blisters Past Medical History - Social History Smoking Status: Former Smoker Frequency of alcohol use: None Drug Abuse: None Family History: Reviewed & Not Pertinent Patient has suicidal ideation: No Patient has homicidal ideation: No - Past Medical History Cardiac Medical History: Denies: Hx Coronary Artery Disease, Hx Heart Attack, Hx Hypertension Pulmonary Medical History: Denies: Hx Asthma, Hx Bronchitis, Hx COPD, Hx Pneumonia Neurological Medical History: Denies: Hx Cerebrovascular Accident, Hx Seizures Renal/ Medical History: Denies: Hx Peritoneal Dialysis GI Medical History: Reports: Hx Gastroesophageal Reflux Disease Musculoskeltal Medical History: Denies Hx Arthritis Psychiatric Medical History: Reports: Hx Depression Past Surgical History: Reports: Hx Abdominal Surgery - FEEDING TUBE REMOVED, PYLORAPLASTY, Hx Section, Hx Cholecystectomy, Hx Neurologic Surgery - DECOMPRESSION, Hx Tonsillectomy - Immunizations Hx Diphtheria, Pertussis, Tetanus Vaccination: No Review of Systems - Review of Systems Notes: My Normal Review Basic REVIEW OF SYSTEMS: CONSTITUTIONAL : Denies fever, chills, or sweats. Denies recent illness. RESPIRATORY: Denies cough, cold, or chest congestion. Denies shortness of breath, difficulty breathing, or wheezing. GASTROINTESTINAL: Denies abdominal pain. Denies nausea, vomiting, or diarrhea. Denies constipation. Last BM: GENITOURINARY: Denies difficulty urinating, painful urination, burning, frequency, or blood in urine. MUSCULOSKELETAL: Some neck pain. SKIN: Denies rash or skin lesions. NEUROLOGICAL: Denies altered mental status or loss of consciousness. Has a headache. Denies weakness or paralysis or loss of use of either side. Denies problems with gait or speech. Denies sensory or motor loss. ALL OTHER SYSTEMS REVIEWED AND NEGATIVE. Physical Exam - Vital signs Vitals: Temp Pulse Resp BP Pulse Ox 99.0 F 86 16 141/73 H 100 04/10/17 21:36 04/10/17 21:36 04/10/17 21:36 04/10/17 21:36 04/10/17 21:36 - Notes Notes: General Appearance: Well nourished, alert, cooperative, no acute distress, moderate obvious discomfort. Vitals: reviewed, See vital signs table. Head: no swelling or tenderness to the head Eyes: PERRL, EOMI, Conjuctiva clear Mouth: No decreasd moisture Throat: No tonsillar inflammation, No airway obstruction, No lymphadenopathy Neck: Supple, some tenderness to palpation over bilateral cervical paraspinal musculature. Lungs: No wheezing, No rales, No rhonci, No accessory muscle use, good air exchange bilaterally. Heart: Normal rate, Regular rythm, No murmur, no rub Extremities: strength 5/5 in all extremities, good pulses in all extremities, no swelling or tenderness in the extremities, no edema. Skin: warm, dry, appropriate color, no rash Neuro: speech clear, oriented x 3, normal affect, responds appropriately to questions. Cranial nerves II through XII are intact. Distal sensation intact. Patient moves all extremities without difficulty. Normal Romberg. Normal gait. Course - Re-evaluation Re-evalutation: 04/11/17 03:07 Patient is feeling some improvement however since that she still feels a lot of pressure and says that this is different than her typical pain known that is more pressure than actual pain. I will get an MRI this morning just to further evaluate. If the patient's MRI is negative then I feel it is perfectly safe for her to follow-up with her primary care doctor for repeat referral to neurosurgery. If MRI shows concerning findings than she may need to be transferred. Dictation of this chart was performed using voice recognition software; therefore, there may be some unintended grammatical errors. - Vital Signs Vital signs: Temp Pulse Resp BP Pulse Ox 98.4 F 81 16 121/59 L 100 04/11/17 00:19 04/11/17 00:19 04/10/17 21:36 04/11/17 00:19 04/11/17 00:19 Discharge - Discharge Clinical Impression: Headache Qualifiers: Headache type: unspecified Headache chronicity pattern: episodic headache Intractability: not intractable Qualified Code(s): R51 - Headache Additional Instructions: Please follow up with your primary care doctor to discuss referral to a neurosurgeon. Please return to the ER immediately if you have worsening pain, fevers, vomiting, or feel unwell. Referrals: ARGENTINA DURBIN PA-C [Primary Care Provider] - Follow up tomorrow
[2017-04-11] MEDS ORDERED: HYDROCODONE/ACETAMINOPHEN 10-325 MG TABLET PO ONE (01:29)
--- NOTE | 2017-04-11 02:34 | RADIOLOGY REPORT (SQ) ---
EXAM DESCRIPTION: CT HEAD WITHOUT COMPLETED DATE/TIME: 04/11/2017 2:18 am REASON FOR STUDY: history of Chiari mal, headache COMPARISON: MRI head 10/06/2016. TECHNIQUE: Axial images acquired through the brain without intravenous contrast. Images reviewed wi th bone, brain and subdural windows. Images stored on PACS. All CT scanners at this facility use dose modulation, iterative reconstruction, and/or weight based d osing when appropriate to reduce radiation dose to as low as reasonably achievable (ALARA). [facility]: Dose Right [facility]: CareDose [facility]: Dose Right [facility]: Teradose 4D [facility]: Smart [employer] RADIATION DOSE: Up-to-date CT equipment and radiation dose reduction techniques were employed. CTDIv ol: 64.6 mGy. DLP: 1292 mGy-cm. mGy. LIMITATIONS: None. FINDINGS: VENTRICLES: Normal size and contour. CEREBRUM: No mass effect. No hemorrhage. No midline shift. Normal kaur/white matter differentiatio n. No evidence for acute territorial infarction. CEREBELLUM: No mass effect. No hemorrhage. No alteration of density. No evidence for acute infarct ion. EXTRAAXIAL SPACES: No fluid collections. ORBITS AND GLOBE: Symmetrical contour of the globes. CALVARIUM: No depressed skull fracture. Postsurgical changes of decompression craniectomy at the pos terior fossa. PARANASAL SINUSES: No air-fluid level. SOFT TISSUES: No hematoma. IMPRESSION: No acute intracranial hemorrhage or depressed calvarial fracture. COMMENT: Quality ID # [id number]: Final reports with documentation of one or more dose reduction techniques (e.g., Automated exposure control, adjustment of the mA and/or kV according to patient size, use of iterative reconstruction technique) TECHNICAL DOCUMENTATION: JOB ID: [id number] [employer]- All Rights Reserved
--- NOTE | 2017-04-11 02:42 | RADIOLOGY REPORT (SQ) ---
EXAM DESCRIPTION: CT CERVICAL SPINE WITHOUT COMPLETED DATE/TIME: 04/11/2017 2:18 am REASON FOR STUDY: history of chiari mal, headache COMPARISON: MRI head 10/06/2016, CT head 04/11/2017. TECHNIQUE: Axial images acquired through the cervical spine without intravenous contrast. Images re viewed with lung, soft tissue and bone windows. Reconstructed coronal and sagittal MPR images review ed. Images stored on PACS. All CT scanners at this facility use dose modulation, iterative reconstruction, and/or weight based d osing when appropriate to reduce radiation dose to as low as reasonably achievable (ALARA). [facility]: Dose Right [facility]: CareDose [facility]: Dose Right [facility]: Teradose 4D [facility]: Smart [employer] RADIATION DOSE: Up-to-date CT equipment and radiation dose reduction techniques were employed. CTDIv ol: 21.9 mGy. DLP: 430 mGy-cm. mGy. LIMITATIONS: None. FINDINGS: ALIGNMENT: Anatomic. MINERALIZATION: Normal. VERTEBRAL BODIES: No acute fractures or dislocation. Status post decompression craniectomy at the po sterior fossa and posterior arch of C1 vertebral body. DISCS: No significant disc disease. FACETS, LATERAL MASSES, POSTERIOR ELEMENTS: No fractures. No dislocation. HARDWARE: None in the spine. VISUALIZED RIBS: No fractures. LUNG APICES AND SOFT TISSUES: No acute findings. IMPRESSION: No CT evidence for acute fracture at the cervical spine. TECHNICAL DOCUMENTATION: JOB ID: [id number] Quality ID # [id number]: Final reports with documentation of one or more dose reduction techniques (e.g., Au tomated exposure control, adjustment of the mA and/or kV according to patient size, use of iterative reconstruction technique) 2010 [employer]- All Rights Reserved
--- NOTE | 2017-04-11 08:33 | RADIOLOGY REPORT (SQ) ---
EXAM DESCRIPTION: MRI HEAD COMBO COMPLETED DATE/TIME: 04/11/2017 8:12 am REASON FOR STUDY: head pressure. History of Chiari malformation COMPARISON: 10/06/2016 MRI brain TECHNIQUE: Multiplanar imaging includes noncontrasted T1, T2, FLAIR, diffusion with ADC map and post gadolinium contrast T1 sequences. Images stored on PACS. CONTRAST TYPE AND DOSE: 20 mL MultiHance. RENAL FUNCTION: GFR > 60. LIMITATIONS: None. FINDINGS: ANATOMY: Patient is post occipital craniotomy, with surgical widening of the foramen magnu m best shown on axial T2 image 5, and sagittal T1 images 10-17. There is effacement of the CSF aroun d the medulla and cerebellar tonsils best shown on axial T2 images 4 through 6. Gated CSF pulsation sequence was performed. No pulsatility is identified in the 4th ventricle, or al shlomo the dorsal aspect of the cerebellum or cerebellar tonsils. There is CSF pulsation ventral to the reynadlo and medulla at the level of the foramen magnum. There is no hydrocephalus. The lateral, 3rd, and 4th ventricles are normal size. CSF SPACES: As above. No hemorrhage. CEREBRUM: Sulci and gyri normal in size and contour. Normal white matter signal on FLAIR imaging. No evidence of hemorrhage, mass, or extraaxial fluid collection. No abnormal enhancement post contrast. POSTERIOR FOSSA: No brain parenchymal signal alteration. No acute acute hemorrhage. No edema, no midl ine shift. Internal auditory canals, cerebellopontine angles, mastoids normal. No enhancing lesions. DIFFUSION IMAGING: Negative for acute or subacute infarction. ORBITS: No masses. Globes normal. PARANASAL SINUSES: No fluid levels. Mucosa normal. OTHER: No other significant finding. IMPRESSION: Chiari 1 malformation with prior occipital decompression. No hydrocephalus. EVIDENCE OF ACUTE STROKE: NO. TECHNICAL DOCUMENTATION: JOB ID: [id number] [employer]- All Rights Reserved
[2017-04-11 09:09] VITALS: BP 116/62
== END 2017-04-11 09:09 | disposition home or self-care (01) ==
LOC: ER 21:10
DX: R51 Headache (principal); M54.2 Cervicalgia; Z90.49 Acquired absence of other specified parts of digestive tract; Z88.6 Allergy status to analgesic agent; Z91.040 Latex allergy status
CPT/HCPCS: 99284; 96374; 70553; 70450; 72125; A9577; J1885